=== PATIENT | male | born 1970 | race Caucasian/White ===

== ENCOUNTER 2018-06-08 14:32 | Emergency (ER) | payer BC ==
[~2018-06-08] VITALS: Ht 170.2 cm; Wt 72.1 kg
[2018-06-08] MEDS ORDERED: CIALIS2.5 MG PO (14:47)
[2018-06-08] MEDS ORDERED: LISINOPRIL10 MG PO (14:47)
[2018-06-08] MEDS ORDERED: SERTRALINE HCL50 MG PO (14:47)
[2018-06-08] MEDS ORDERED: LIPITOR 20 MG T20 M1 PO (14:47)
[2018-06-08] MEDS ORDERED: PROTONIX40 M1 PO (14:47)
[2018-06-08 14:52] LABS: URINE BILIRUBIN NEGATIVE (Negative); URINE CLARITY CLOUDY; URINE COLOR RED; URINE GLUCOSE-RANDOM NEGATIVE (Negative); URINE KETONES NEGATIVE (Negative); URINE NITRITE-REFLEX NEGATIVE (Negative); URINE PROTEIN 1+ (Negative); URINE UROBILINOGEN 0.2 E.U./dl (0.2-1.0)
[2018-06-08 14:57] LABS: URINE BLOOD 3+ (Negative); URINE LEUKOCYTES-REFLEX 3+ (Negative)
[2018-06-08 15:00] LABS: URINE RBC >20 Many /HPF (0-2)
[2018-06-08 15:01] LABS: SQUAMOUS 4-10 Moderate /LPF (0-3)
[2018-06-08 15:02] LABS: BACTERIA-REFLEX >30 Many /HPF (None Seen); URINE WBC-REFLEX 6-15 Few /HPF (0-5)
[2018-06-08 15:03] LABS: CASTS None Seen /LPF (None Seen); CRYSTALS None Seen /LPF (None Seen); MUCUS 0-3 Light strn/LPF (None Seen)
[2018-06-08 15:21] LABS: ABSOLUTE EOSINOPHILS 0.1 thou/uL (0.0-0.7); ABSOLUTE LYMPHOCYTES 1.4 thou/uL (0.8-5.3); ABSOLUTE MONOCYTES 1.1 thou/uL (0.0-1.2); ABSOLUTE NEUTROPHILS 8.9 thou/uL (1.6-8.1); BASOPHILS 0.3 %; EOSINOPHILS 1.1 %; HEMATOCRIT 50.3 % (42.0-52.0); HEMOGLOBIN 16.6 gm/dL (14.0-18.0); LYMPHOCYTES 12.2 %; MCH 28.2 pg (26.0-34.0); MCHC 32.9 g/dL (28.0-37.0); MCV 85.7 fL (80.0-100.0); MONOCYTES 9.2 %; MPV 7.7 fl. (7.2-11.1); NUCLEATED RBCS 0 /100WBC; PLATELET COUNT* 297 thou/uL (150-400); POLYS 77.2 %; RBC 5.87 mil/uL (4.50-6.00); RDW-CV 14.2 % (10.5-14.5); WBC 11.5 thou/uL (4.0-11.0)
[2018-06-08 15:26] LABS: CALCIUM 8.3 mg/dL (8.5-10.1); CREATININE 1.2 mg/dL (0.6-1.3); POTASSIUM 3.9 mmol/L (3.5-5.1)
[2018-06-08 15:31] LABS: ALBUMIN 3.7 g/dL (3.4-5.0); TOTAL BILIRUBIN 0.6 mg/dL (<0.1-1.0); TOTAL PROTEIN 7.5 g/dL (6.4-8.2)
[2018-06-08] MEDS ORDERED: BACTRIM DS TAB1 EAC1 PO (15:47)
[2018-06-08 16:00] VITALS: BP 147/93
== END 2018-06-08 16:01 | disposition home or self-care (01) ==
LOC: M.ERS 14:32
PROVIDERS: Nurse Practitioner Family
DX: N39.0 Urinary tract infection, site not specified (principal); I10 Essential (primary) hypertension; F32.9 Major depressive disorder, single episode, unspecified